=== PATIENT | female | born 1990 | race Caucasian/White ===

== ENCOUNTER 2017-07-20 15:53 | Inpatient (IN) | payer BC, OTHER ==
[~2017-07-20] VITALS: Ht 154.9 cm; Wt 42.6 kg
[~2017-07-20 15:53] MED LIST: CYMBALTA PO; LAMICTAL PO
[2017-07-20] MEDS ORDERED: ONDANSETRON IV *ER 4 MG/2 ML VIAL IV ONE (16:23)
[2017-07-20] MEDS ORDERED: IV NS 1000 ML 1,000 ML IV ONE ×2 (16:30→17:45)
[2017-07-20] MEDS ORDERED: ONDANSETRON 4 MG/2 ML VIAL ONE (16:46)
[2017-07-20 16:47] LABS: BASOPHILS % (AUTO) 0.6 % (0.0-2.0); EOSINOPHILS # (AUTO) 0.3 K/uL (0.0-0.7); EOSINOPHILS % (AUTO) 5.1 % (0.0-7.0); HEMATOCRIT 37.6 % (31.2-41.9); LYMPHOCYTES # (AUTO) 2.1 K/uL (20.0-40.0); LYMPHOCYTES % (AUTO) 32.9 % (20.5-51.5); MEAN CORPUSCULAR HEMOGLOBIN 29.9 uug (24.7-32.8); MEAN CORPUSCULAR HGB CONC 35 g/dL (32.3-35.6); MEAN CORPUSCULAR VOLUME 86.2 fL (75.5-95.3); MONOCYTES # (AUTO) 0.4 K/uL (2.0-10.0); MONOCYTES % (AUTO) 6.7 % (0.0-11.0); NEUTROPHILS # (AUTO) 3.5 K/uL (1.8-8.9); NEUTROPHILS % (AUTO) 54.7 % (38.5-71.5); PLATELET COUNT (AUTO) 266 K/uL (179-408); RED BLOOD CELL COUNT(AUTO) 4.37 MIL/uL (3.63-4.92); WHITE BLOOD COUNT (AUTO) 6.4 K/uL (3.8-11.8)
[2017-07-20 16:54] LABS: CREATININE 0.8 mg/dL (0.6-1.3); POTASSIUM 4.2 mmol/L (3.5-5.1)
--- NOTE | 2017-07-20 16:55 | NUR ---
PATIENT WAS SEEN BY DR ALBRIGHT. SHE IS AWAKE AND ALERT. SHE STATES SHE FEELS DIZZY. SHE STATES SHE IS ANOREXIC. DR ALBRIGHT NOTIFIED. IV PLACED, MEDS GIVEN IV FLUIDS TARTED.
[2017-07-20 17:01] LABS: BILIRUBIN,TOTAL 0.4 mg/dL (0.2-1.0); TOTAL PROTEIN, SERUM 7.3 g/dL (6.4-8.2)
--- NOTE | 2017-07-20 17:35 | NUR ---
PATIENT STATES NAUSEA IS STILL THERE. DR ALBRIGHT AWARE. WILL GIVE ANOTHER MED PER DO.
[2017-07-20] MEDS ORDERED: METOCLOPRAMIDE HCL 10 MG/2 ML VIAL IV ONE (17:42)
[2017-07-20] MEDS ORDERED: PANTOPRAZOLE SODIUM IV 40 MG in IV DEXTROSE 5% 100 ML IV ONE (17:45)
[2017-07-20] MEDS ORDERED: PANTOPRAZOLE SODIUM 40 MG VIAL ONE (17:49)
[2017-07-20] MEDS ORDERED: METOCLOPRAMIDE HCL 10 MG/2 ML VIAL ONE (17:49)
[2017-07-20] MEDS ORDERED: DULO60CA45 PO (18:16)
[2017-07-20] MEDS ORDERED: LAMO150T2 PO (18:16)
--- NOTE | 2017-07-20 18:34 | NUR ---
PATIENT STATES NAUSEA HAS DIMIISHED SOME. PATIENT AWARE OF PENDING ADMISSION.
--- NOTE | 2017-07-20 19:19 | NUR ---
REPORT TAKEN FROM GABRIELLA SPENCER. ASSUMING PT CARE AT THIS TIME.
--- NOTE | 2017-07-20 19:36 | NUR ---
REPORT GIVEN TO GABRIELLA GREENE.
--- NOTE | 2017-07-20 19:44 | NUR ---
RECEIVED PT ALERT AND ORIENTED X 3. NO DISTRESS NOTED AT THIS TIME. UNIT ORIENTATION AND SAFETY MEASURES PROVIDED. WILL CONTINUE TO MONITOR.
--- NOTE | 2017-07-20 19:47 | NUR ---
Pt. admitted to tele, under care of Dr. Patel Belongs List completed
[2017-07-20] MEDS ORDERED: ACETAMINOPHEN 325 MG TABLET PO PRN ×2 (20:15→20:30)
[2017-07-20] MEDS ORDERED: MORPHINE SULFATE 2 MG/1 ML DISP.SYRIN IV PRN ×2 (20:15→20:30)
[2017-07-20] MEDS ORDERED: METOCLOPRAMIDE HCL 10 MG/2 ML VIAL IV PRN ×2 (20:15→20:30)
[2017-07-20] MEDS ORDERED: IV D5/ 0.9% NACL 1,000 ML IV PRN (20:15)
[2017-07-20] MEDS ORDERED: ACETAMINOPHEN 650 MG SUPP.RECT RC PRN (20:15)
[2017-07-20] MEDS ORDERED: MORPHINE SULFATE 4 MG/1 ML DISP.SYRIN IV PRN (20:30)
[2017-07-20] MEDS ORDERED: IV D5 1/2 NS 1000 ML 1,000 ML IV PRN (20:30)
--- NOTE | 2017-07-20 21:00 | NUR ---
BP NOTED TO BE 98/56. NO S/S OF DISTRESS NOTED. IV HYDRATION INITIATED, PT ENCOURAGED TO DRINK FLUIDS. TELE NOTED TO BE SINUS RHYTHM. WILL CONTINUE TO MONITOR.
[2017-07-20 21:12] VITALS: BP 98/56
[2017-07-20] MEDS: IV D5 1/2 NS 1000 ML 1,000 ML IV PRN (21:19)
[2017-07-21] VITALS (8 sets, daily range): BP systolic 86–101; BP diastolic 50–61
--- NOTE | 2017-07-21 05:27 | NUR ---
BLOOD PRESSURE IS NOTED TO BE 98/60 AT THIS TIME AND IS ASYMPTOMATIC. PT REMAINS ALERT AND ORIENTED X 3 WITH NO C/O DIZZINESS OR N/V. PER PT, HER BASELINE BLOOD PRESSURE IS NORMALLY SYSTOLIC 100-110. TELE NOTED TO BE SINUS RHYTHM WITH HR AT 67. PT ENCOURAGED TO INCREASE FLUID INTAKE TO AID WITH BP AND HYDRATION. IVF RUNNING AT 80 CC/HR. SAFETY MEASURES PROVIDED. WILL CONTINUE TO MONITOR.
[2017-07-21] MEDS: PANTOPRAZOLE SODIUM 40 MG TABLET.DR PO SCH (06:22)
[2017-07-21 06:50] LABS: BASOPHILS % (AUTO) 0.3 % (0.0-2.0); EOSINOPHILS # (AUTO) 0.1 K/uL (0.0-0.7); EOSINOPHILS % (AUTO) 1.9 % (0.0-7.0); HEMATOCRIT 32.6 % (31.2-41.9); HEMOGLOBIN 11.4 g/dL (10.9-14.3); LYMPHOCYTES # (AUTO) 2.8 K/uL (20.0-40.0); LYMPHOCYTES % (AUTO) 35.9 % (20.5-51.5); MEAN CORPUSCULAR HEMOGLOBIN 30.5 uug (24.7-32.8); MEAN CORPUSCULAR HGB CONC 35 g/dL (32.3-35.6); MONOCYTES # (AUTO) 0.5 K/uL (2.0-10.0); MONOCYTES % (AUTO) 6.6 % (0.0-11.0); NEUTROPHILS # (AUTO) 4.4 K/uL (1.8-8.9); NEUTROPHILS % (AUTO) 55.3 % (38.5-71.5); PLATELET COUNT (AUTO) 214 K/uL (179-408); RED BLOOD CELL COUNT(AUTO) 3.75 MIL/uL (3.63-4.92); WHITE BLOOD COUNT (AUTO) 7.9 K/uL (3.8-11.8)
[2017-07-21 06:58] LABS: BILIRUBIN,TOTAL 0.4 mg/dL (0.2-1.0); CREATININE 0.8 mg/dL (0.6-1.3); MAGNESIUM 1.8 mg/dL (1.8-2.4); PHOSPHOROUS 3.1 mg/dL (2.5-4.9); POTASSIUM 4.9 mmol/L (3.5-5.1); TOTAL PROTEIN, SERUM 6.3 g/dL (6.4-8.2)
[2017-07-21] MEDS ORDERED: PANTOPRAZOLE SODIUM 40 MG TABLET.DR PO SCH (07:00)
[2017-07-21 07:18] LABS: THYROID STIMULATING HORMONE 2.43 mIU/mL (0.358-3.740)
--- NOTE | 2017-07-21 07:30 | NUR ---
Awake, alert, oriented x 4. IVF infusing. Denies nausea/vomiting. Requested to speak with Metal Roofer.
[2017-07-21] MEDS: LAMOTRIGINE 200 MG TABLET PO SCH (08:54)
[2017-07-21] MEDS ORDERED: DULOXETINE 60 MG CAPSULE.DR PO SCH (09:00)
[2017-07-21] MEDS ORDERED: METOCLOPRAMIDE HCL 10 MG/2 ML VIAL IV PRN (09:00)
[2017-07-21] MEDS ORDERED: LAMOTRIGINE 100 MG TABLET PO SCH (09:00)
[2017-07-21] MEDS ORDERED: ONDANSETRON 4 MG/2 ML VIAL IV PRN (10:45)
[2017-07-21] MEDS ORDERED: PROCHLORPERAZINE EDISYLATE 10 MG/2 ML VIAL IV PRN (10:45)
--- NOTE | 2017-07-21 11:30 | NUR ---
Seen and examined by Dr. Mc for psych consult
[2017-07-21] MEDS: DULOXETINE 60 MG CAPSULE.DR PO SCH (11:56)
[2017-07-21] MEDS ORDERED: IV NORMAL SALINE 500 ML IV ONE (13:45)
--- NOTE | 2017-07-21 14:15 | NUR ---
NS IV Bolus given as ordered
[2017-07-21] MEDS: IV D5 1/2 NS 1000 ML 1,000 ML IV PRN ×2 (16:23→23:56)
[2017-07-21 16:44] LABS: *BILIRUBIN,URIN NEGATIVE (NEGATIVE); *BLOOD, URINE NEGATIVE (NEGATIVE); *CLARITY,URINE CLEAR (CLEAR); *COLOR,URINE YELLOW (YELLOW); *KETONES,URINE NEGATIVE (NEGATIVE); *PROTEIN,URINE NEGATIVE (NEGATIVE); *UROBILINOGEN,URINE 0.2 E.U./dl (NORMAL); LEUKOCYTE ESTERASE ,URINE NEGATIVE (NEGATIVE); NITRITE, URINE NEGATIVE (NEGATIVE); UGLUCOSE NEGATIVE (NEGATIVE)
[2017-07-21 17:30] LABS: BACTERIA,URINE FEW /HPF (NONE SEEN); SQUAMOUS EPITHELIAL CELL,UR MODERATE /HPF (NONE SEEN); WBC,URINE 0-3 /HPF (0-3)
--- NOTE | 2017-07-21 18:06 | NUR ---
Tolerating clear liquid diet. No nausea/vomiting noted. IVF infusing.
--- NOTE | 2017-07-21 20:00 | NUR ---
OBSERVED TO BE IN BED RECEIVING IVF. AWARE OF PLAN OF CARE. NO N/V NOTED AT THIS TIME. SAFETY MEASURES ENDURED. WILL CONTINUE TO MONITOR.
[2017-07-22] VITALS: BP 94/59
[2017-07-22 04:00] VITALS: BP 94/59
--- NOTE | 2017-07-22 06:00 | NUR ---
NO COMPLAINTS OF NAUSEA/VOMITING THROUGHOUT THE SHIFT. SLEPT COMFORTABLY THROUGHOUT THE NIGHT. CALL LIGHT WITHIN REACH. SAFETY MEASURES PROVIDED
[2017-07-22] MEDS: PANTOPRAZOLE SODIUM 40 MG TABLET.DR PO SCH (06:12)
[2017-07-22 07:00] LABS: BASOPHILS % (AUTO) 0.4 % (0.0-2.0); EOSINOPHILS # (AUTO) 0.2 K/uL (0.0-0.7); HEMOGLOBIN 10.6 g/dL (10.9-14.3); LYMPHOCYTES # (AUTO) 2.4 K/uL (20.0-40.0); LYMPHOCYTES % (AUTO) 48.2 % (20.5-51.5); MEAN CORPUSCULAR HEMOGLOBIN 29.9 uug (24.7-32.8); MEAN CORPUSCULAR HGB CONC 34 g/dL (32.3-35.6); MONOCYTES # (AUTO) 0.4 K/uL (2.0-10.0); NEUTROPHILS % (AUTO) 39.4 % (38.5-71.5); PLATELET COUNT (AUTO) 183 K/uL (179-408); RED BLOOD CELL COUNT(AUTO) 3.56 MIL/uL (3.63-4.92)
[2017-07-22 07:02] LABS: BILIRUBIN,TOTAL 0.2 mg/dL (0.2-1.0); CREATININE 0.7 mg/dL (0.6-1.3); MAGNESIUM 1.8 mg/dL (1.8-2.4); PHOSPHOROUS 3.4 mg/dL (2.5-4.9); POTASSIUM 4.1 mmol/L (3.5-5.1); TOTAL PROTEIN, SERUM 5.5 g/dL (6.4-8.2)
--- NOTE | 2017-07-22 07:10 | NUR ---
RECEIVED REPORT FROM [employer] FITTER NURSE, PATIENT IN BED AWAKE, NO DISTRESS NOTED, NO NAUSEA REPORTED. BED IN LOW POSITION, SIDE RAILS UP X2.
[2017-07-22] MEDS: DULOXETINE 60 MG CAPSULE.DR PO SCH (08:49)
[2017-07-22] MEDS: LAMOTRIGINE 200 MG TABLET PO SCH (08:49)
[2017-07-22] MEDS: IV D5 1/2 NS 1000 ML 1,000 ML IV PRN (08:52)
[2017-07-22 10:34] LABS: IRON, SERUM 48 ug/dL (50-175)
[2017-07-22 11:45] VITALS: BP 94/57
--- NOTE | 2017-07-22 13:35 | NUR ---
Patient was discharged after manager social work provided patient with options for rehabilitation from eating disorder, iv removed by accident by patient, education provided for follow up with primary care provider, and instructed to ask for a cbc. Patient is in no distress, was able to eat half her meal with no nausea or vomiting. Parents picked up patient.
== END 2017-07-22 13:30 | disposition home or self-care (01) | DRG 759 ==
LOC: ER 15:53 → TELE 19:02
PROVIDERS: ADMIT Internal Medicine; ATTEND Nurse Practitioner Acute Care
DX: E46 Unspecified protein-calorie malnutrition (principal); F50.00 Anorexia nervosa, unspecified; E88.09 Other disorders of plasma-protein metabolism, not elsewhere classified; E83.51 Hypocalcemia; E86.0 Dehydration; Z88.2 Allergy status to sulfonamides; F32.9 Major depressive disorder, single episode, unspecified; F12.90 Cannabis use, unspecified, uncomplicated; Z68.1 Body mass index [BMI] 19.9 or less, adult; R11.2 Nausea with vomiting, unspecified; Z72.0 Tobacco use; R53.1 Weakness
CPT/HCPCS: 36415; 71045; 83550; 83605; 83690; 83735; 84100; 84443; 84703; 85025; 85610; 87086; 93005; A4663; C9113; J2405; J2765; J3490; J7030; J7040

== ENCOUNTER 2018-10-08 16:57 | Inpatient (IN) | payer OTHER ==
[~2018-10-08] VITALS: Ht 154.9 cm; Wt 43.5 kg
[2018-10-08 08:00] VITALS: BP 110/73
[~2018-10-08 16:57] MED LIST changes: -CYMBALTA PO; +DULO60CA45 PO; -LAMICTAL PO; +LAMO150T2 PO
[2018-10-08] MEDS ORDERED: LURA40TA PO ×2 (17:26)
[2018-10-08] MEDS ORDERED: TRAZ-214 PO (17:26)
[2018-10-08] MEDS ORDERED: IV NORMAL SALINE 1000 ML BAG IV ONE (17:45)
[2018-10-08 17:59] LABS: POTASSIUM 3.9 mmol/L (3.5-5.1)
[2018-10-08 18:01] LABS: BASOPHILS % (AUTO) 0.7 % (0.0-2.0); EOSINOPHILS # (AUTO) 0.1 K/uL (0.0-0.7); EOSINOPHILS % (AUTO) 2.1 % (0.0-7.0); HEMATOCRIT 36.9 % (31.2-41.9); HEMOGLOBIN 12.3 g/dL (10.9-14.3); LYMPHOCYTES # (AUTO) 2.4 K/uL (20.0-40.0); LYMPHOCYTES % (AUTO) 38.5 % (20.5-51.5); MEAN CORPUSCULAR HEMOGLOBIN 29.7 uug (24.7-32.8); MEAN CORPUSCULAR HGB CONC 33 g/dL (32.3-35.6); MEAN CORPUSCULAR VOLUME 89.2 fL (75.5-95.3); MONOCYTES # (AUTO) 0.4 K/uL (2.0-10.0); MONOCYTES % (AUTO) 5.9 % (0.0-11.0); NEUTROPHILS # (AUTO) 3.3 K/uL (1.8-8.9); NEUTROPHILS % (AUTO) 52.8 % (38.5-71.5); PLATELET COUNT (AUTO) 253 K/uL (179-408); RED BLOOD CELL COUNT(AUTO) 4.13 MIL/uL (3.63-4.92); WHITE BLOOD COUNT (AUTO) 6.2 K/uL (3.8-11.8)
[2018-10-08 18:02] LABS: MAGNESIUM 1.9 mg/dL (1.8-2.4); PHOSPHOROUS 3.7 mg/dL (2.5-4.9)
[2018-10-08 18:06] LABS: BILIRUBIN,DIRECT 0.1 mg/dL (0.0-0.2); BILIRUBIN,TOTAL 0.4 mg/dL (0.2-1.0); TOTAL PROTEIN, SERUM 7.5 g/dL (6.4-8.2)
[2018-10-08 19:38] LABS: *BILIRUBIN,URIN NEGATIVE (NEGATIVE); *BLOOD, URINE NEGATIVE (NEGATIVE); *CLARITY,URINE CLEAR (CLEAR); *COLOR,URINE YELLOW (YELLOW); *KETONES,URINE 1+ (NEGATIVE); *UROBILINOGEN,URINE 0.2 E.U./dl (NORMAL); LEUKOCYTE ESTERASE ,URINE NEGATIVE (NEGATIVE); NITRITE, URINE NEGATIVE (NEGATIVE); PH,URINE 6.5 (5.0-8.0); UGLUCOSE NEGATIVE (NEGATIVE)
[2018-10-08 19:42] LABS: *URINE HCG, QUAL NEGATIVE (NEGATIVE)
[2018-10-08 19:45] LABS: SQUAMOUS EPITHELIAL CELL,UR FEW /HPF (NONE SEEN); WBC,URINE 0-3 /HPF (0-3)
[2018-10-08] MEDS ORDERED: LORAZEPAM 2 MG/1 ML VIAL IV PRN (21:15)
[2018-10-08] MEDS ORDERED: ACETAMINOPHEN 325 MG TABLET PO PRN (21:15)
[2018-10-08] MEDS ORDERED: ONDANSETRON 4 MG/2 ML VIAL IV PRN (21:15)
[2018-10-08] MEDS ORDERED: TRAZODONE 100 MG TABLET PO SCH (22:00)
[2018-10-08] MEDS: IV NS 1000 ML 1,000 ML IV PRN (22:19)
[2018-10-09 06:07] VITALS: BP 95/57
[2018-10-09 06:32] LABS: BASOPHILS % (AUTO) 0.2 % (0.0-2.0); EOSINOPHILS # (AUTO) 0.2 K/uL (0.0-0.7); EOSINOPHILS % (AUTO) 3.2 % (0.0-7.0); HEMATOCRIT 36.2 % (31.2-41.9); LYMPHOCYTES # (AUTO) 2.9 K/uL (20.0-40.0); LYMPHOCYTES % (AUTO) 59.7 % (20.5-51.5); MEAN CORPUSCULAR HEMOGLOBIN 29.9 uug (24.7-32.8); MEAN CORPUSCULAR HGB CONC 33 g/dL (32.3-35.6); MEAN CORPUSCULAR VOLUME 90.1 fL (75.5-95.3); MONOCYTES # (AUTO) 0.3 K/uL (2.0-10.0); MONOCYTES % (AUTO) 6.6 % (0.0-11.0); NEUTROPHILS # (AUTO) 1.5 K/uL (1.8-8.9); NEUTROPHILS % (AUTO) 30.3 % (38.5-71.5); PLATELET COUNT (AUTO) 212 K/uL (179-408); RED BLOOD CELL COUNT(AUTO) 4.02 MIL/uL (3.63-4.92); WHITE BLOOD COUNT (AUTO) 4.9 K/uL (3.8-11.8)
[2018-10-09 07:08] LABS: THYROID STIMULATING HORMONE 3.573 mIU/mL (0.358-3.740)
[2018-10-09 07:28] LABS: BILIRUBIN,TOTAL 0.5 mg/dL (0.2-1.0); CREATININE 0.8 mg/dL (0.6-1.3); MAGNESIUM 1.9 mg/dL (1.8-2.4); PHOSPHOROUS 4.1 mg/dL (2.5-4.9); POTASSIUM 3.8 mmol/L (3.5-5.1); TOTAL PROTEIN, SERUM 6.4 g/dL (6.4-8.2)
[2018-10-09] MEDS ORDERED: LAMOTRIGINE 100 MG TABLET PO SCH (09:00)
[2018-10-09] MEDS ORDERED: DULOXETINE 60 MG CAPSULE.DR PO SCH (09:00)
[2018-10-09] MEDS: IV NS 1000 ML 1,000 ML IV PRN (11:08)
[2018-10-09 11:30] VITALS: BP 92/51
== END 2018-10-09 13:03 | disposition home or self-care (01) | DRG 756 ==
LOC: ER 16:58 → MEDSURG3 19:41
PROVIDERS: ADMIT Internal Medicine; ATTEND Internal Medicine
DX: F41.9 Anxiety disorder, unspecified (principal); R11.0 Nausea; F50.00 Anorexia nervosa, unspecified; E86.0 Dehydration; F32.9 Major depressive disorder, single episode, unspecified; R62.7 Adult failure to thrive; F17.290 Nicotine dependence, other tobacco product, uncomplicated; Z79.899 Other long term (current) drug therapy
CPT/HCPCS: 36415; 83690; 83735; 84100; 84443; 84703; 85025; 93005; A4663; G0378; J7030

== ENCOUNTER 2019-11-26 18:42 | Emergency (ER) | payer OTHER ==
[~2019-11-26] VITALS: Ht 154.9 cm; Wt 39.0 kg
[~2019-11-26 18:42] MED LIST changes: +LURA40TA PO; +TRAZ-257 PO
[2019-11-26] MEDS ORDERED: ONDA4TAB5 PO (18:56)
[2019-11-26] MEDS ORDERED: DULO30CA2 PO (18:56)
[2019-11-26] MEDS ORDERED: LAMO150T6 PO (18:56)
--- NOTE | 2019-11-26 18:58 | NUR ---
PT IS IN ROOM #1B. DR LOBO EVALUATED THE PT.
[2019-11-26] MEDS ORDERED: ONDANSETRON 4 MG/2 ML VIAL IV ONE ×2 (19:00→20:45)
[2019-11-26] MEDS ORDERED: HYDROMORPHONE 1 MG/1 ML DISP.SYRIN IV ONE (19:00)
[2019-11-26] MEDS ORDERED: IV NORMAL SALINE 1000 ML BAG IV ONE ×2 (19:00→20:45)
[2019-11-26 19:25] LABS: BASOPHILS % (AUTO) 0.7 % (0.0-2.0); EOSINOPHILS # (AUTO) 0.1 K/uL (0.0-0.7); EOSINOPHILS % (AUTO) 1.8 % (0.0-7.0); HEMATOCRIT 38.4 % (31.2-41.9); HEMOGLOBIN 12.8 g/dL (10.9-14.3); LYMPHOCYTES # (AUTO) 1.5 K/uL (20.0-40.0); LYMPHOCYTES % (AUTO) 27.4 % (20.5-51.5); MEAN CORPUSCULAR HEMOGLOBIN 30.8 uug (24.7-32.8); MEAN CORPUSCULAR HGB CONC 33 g/dL (32.3-35.6); MEAN CORPUSCULAR VOLUME 92.3 fL (75.5-95.3); MONOCYTES # (AUTO) 0.4 K/uL (2.0-10.0); MONOCYTES % (AUTO) 8.1 % (0.0-11.0); NEUTROPHILS # (AUTO) 3.3 K/uL (1.8-8.9); PLATELET COUNT (AUTO) 257 K/uL (179-408); RED BLOOD CELL COUNT(AUTO) 4.16 MIL/uL (3.63-4.92); WHITE BLOOD COUNT (AUTO) 5.4 K/uL (3.8-11.8)
[2019-11-26] MEDS ORDERED: ONDANSETRON 4 MG/2 ML VIAL ONE ×2 (19:27→20:47)
[2019-11-26] MEDS ORDERED: HYDROMORPHONE 1 MG/1 ML DISP.SYRIN ONE (19:27)
[2019-11-26 19:33] LABS: CARBON DIOXIDE 25 mmol/L (21-32); CHLORIDE 102 mmol/L (98-107); CREATININE 0.8 mg/dL (0.6-1.3); GLUCOSE 119 mg/dL (74-106); POTASSIUM 3.9 mmol/L (3.5-5.1); UREA NITROGEN, BLOOD 7 mg/dL (7-18)
[2019-11-26 19:39] LABS: ALANINE AMINOTRANSFERASE 19 U/L (14-59); ALKALINE PHOSPHATASE 53 U/L (50-136); ASPARTATE AMINOTRANSFERASE 19 U/L (15-37); BILIRUBIN,DIRECT 0.1 mg/dL (0.0-0.2); BILIRUBIN,TOTAL 0.4 mg/dL (0.2-1.0); LIPASE 62 U/L (73-393); TOTAL PROTEIN, SERUM 7.1 g/dL (6.4-8.2)
[2019-11-26] MEDS ORDERED: MAGNESIUM HYDROXIDE 30 ML LIQUID UDC PO ONE (20:45)
[2019-11-26] MEDS ORDERED: MAGNESIUM CITRATE 296 ML BOTTLE PO ONE (20:45)
[2019-11-26] MEDS ORDERED: MAGNESIUM CITRATE 296 ML BOTTLE ONE (20:47)
[2019-11-26] MEDS ORDERED: MAGNESIUM HYDROXIDE 30 ML LIQUID UDC ONE (20:47)
--- NOTE | 2019-11-26 21:23 | NUR ---
IV removed. Catheter intact and site benign. Pressure and 4x4 gauze applied to site. No bleeding noted.
--- NOTE | 2019-11-26 21:26 | NUR ---
Patient discharged to home in stable condition WITH UBER TAKING PATIENT HOME. Written and verbal after care instructions given. Patient verbalizes understanding of instructions. Stressed follow up or return to ER for worsening s/s.
[2019-11-26 21:28] VITALS: BP 108/68
== END 2019-11-26 21:29 | disposition home or self-care (01) ==
LOC: ER 18:42
DX: R10.30 Lower abdominal pain, unspecified (principal); K59.00 Constipation, unspecified; R11.2 Nausea with vomiting, unspecified; R94.31 Abnormal electrocardiogram [ECG] [EKG]; F32.9 Major depressive disorder, single episode, unspecified; Z79.899 Other long term (current) drug therapy; Z88.2 Allergy status to sulfonamides; Z20.828 Contact with and (suspected) exposure to other viral communicable diseases
CPT/HCPCS: 36415; 71045; 74176; 80048; 80076; 83690; 84484; 84702; 85025; 85730; 93005; 96361; 96374; 96376; 99285; J2405 ×2; U0003; 70030-TC; A4663; J1170; J7030